=== PATIENT | male | born 1980 | race Caucasian/White ===

== ENCOUNTER 2017-09-14 21:18 | Emergency (ER) | payer BC, OTHER ==
[2017-09-14 21:33] VITALS: BP 127/84; PULSE 78; TEMP 97.4; BMI 24.4
--- NOTE | 2017-09-14 21:34 | PDOC ---
History of Present Illness - General History Source: Patient Exam Limitations: No Limitations - History of Present Illness Initial Comments: 09/14/17 21:40 The patient is a 36 year old male with a significant PMH of asthma who presents to the emergency department with chest discomfort beginning approximately 5 hours ago. The patient describes his chest discomfort as a pressure like sensation which is 5/10 in severity and aggravated by cough to a 7/10. He also notes associated left arm numbness. The patient denies any prior history of these symptoms. He reports using his Breo and ProAir to minimal relief. As per EMS, the patient was given 3 baby aspirin and 0.4 mg sublingual Nitro en route. The patient denies shortness of breath, headache and dizziness. Denies fever, chills, nausea, vomit, diarrhea and constipation. Denies dysuria, frequency, urgency and hematuria. Allergies: NKA Past surgical history: None reported. Social history: No reported cigarette, alcohol, or drug use. PCP: None reported. <Jesse Jewell - Last Filed: 09/14/17 22:01> - General History Source: Patient <ClaudetteMarkel - Last Filed: 09/14/17 23:09> - General Chief Complaint: Chest Pain Stated Complaint: CHEST PAIN Time Seen by Provider: 09/14/17 21:27 Past History <Jesse Jewell - Last Filed: 09/14/17 22:01> - Suicide/Smoking/Psychosocial Hx Smoking History: Never smoked Have you smoked in the past 12 months: No Information on smoking cessation initiated: No Hx Alcohol Use: No Drug/Substance Use Hx: No <Markel Wilkins - Last Filed: 09/14/17 23:09> - Past Medical History Allergies/Adverse Reactions: Allergies Allergy/AdvReac Type Severity Reaction Status Date / Time No Known Allergies Allergy Verified 09/14/17 21:32 Review of Systems - Review of Systems Able to Perform ROS?: Yes Comments:: 09/14/17 21:40 CONSTITUTIONAL: Absent: fever, chills, diaphoresis, generalized weakness, malaise, loss of appetite HEENT: Absent: rhinorrhea, nasal congestion, throat pain, throat swelling, difficulty swallowing, mouth swelling, ear pain, eye pain, visual Changes CARDIOVASCULAR: (+) Chest discomfort. Absent: chest pain, syncope, palpitations, irregular heart rate, lightheadedness , peripheral edema RESPIRATORY: (+) Cough, Absent: shortness of breath, dyspnea with exertion, orthopnea, wheezing, stridor , hemoptysis GASTROINTESTINAL: Absent: abdominal pain, abdominal distension, nausea, vomiting, diarrhea, constipation, melena, hematochezia GENITOURINARY: Absent: dysuria, frequency, urgency, hesitancy, hematuria, flank pain, genital pain MUSCULOSKELETAL: Absent: myalgia, arthralgia, joint swelling SKIN: Absent: rash, itching, pallor HEMATOLOGIC/IMMUNOLOGIC: Absent: easy bleeding, easy bruising, lymphadenopathy, frequent infections ENDOCRINE: Absent: unexplained weight gain, unexplained weight loss, heat intolerance, cold intolerance NEUROLOGIC: Absent: headache, focal weakness or paresthesias, dizziness, unsteady gait, seizure, mental status changes, bladder or bowel incontinence PSYCHIATRIC: <Jesse Jewell - Last Filed: 09/14/17 22:01> *Physical Exam - Vital Signs Last Vital Signs Temp Pulse Resp BP Pulse Ox 97.4 F L 78 18 127/84 98 09/14/17 21:32 09/14/17 21:32 09/14/17 21:32 09/14/17 21:32 09/14/17 21:32 - Physical Exam Comments: 09/14/17 21:41 GENERAL: Well developed, well nourished. Awake and alert. No acute distress. HEENT: Normocephalic, atraumatic. PERRLA, EOMI. No conjunctival pallor. Sclera are non- icteric. Moist mucous membranes. Oropharynx is clear. NECK: Supple. Full ROM. No JVD. Carotid pulses 2+ and symmetric, without bruits. No thyromegaly. No lymphadenopathy. CARDIOVASCULAR: Regular rate and rhythm. No murmurs, rubs, or gallops. Distal pulses are 2+ and symmetric. PULMONARY: No evidence of respiratory distress. Lungs clear to auscultation bilaterally. No wheezing, rales or rhonchi. ABDOMINAL: Soft. Non-tender. Non-distended. No rebound or guarding. No organomegaly. Normoactive bowel sounds. MUSCULOSKELETAL Normal range of motion at all joints. No bony deformities or tenderness. No CVA tenderness. EXTREMITIES: No cyanosis. No clubbing. No edema. No calf tenderness. SKIN: Warm and dry. Normal capillary refill. No rashes. No jaundice. NEUROLOGICAL: Alert, awake, appropriate. Cranial nerves 2-12 intact. No deficits to light touch and temperature in face, upper extremities and lower extremities. No motor deficits in the in face, upper extremities and lower extremities. Normoreflexic in the upper and lower extremities. Normal speech. Toes are downgoing bilaterally. Gait is normal without ataxia. PSYCHIATRIC: Cooperative. Good eye contact. Appropriate mood and affect. <Jesse Jewell - Last Filed: 09/14/17 22:01> - Vital Signs Last Vital Signs Temp Pulse Resp BP Pulse Ox 97.4 F L 78 18 127/84 98 09/14/17 21:32 09/14/17 21:32 09/14/17 21:32 09/14/17 21:32 09/14/17 21:32 <Markel Wilkins - Last Filed: 09/14/17 23:09> Heart Score/ECG Review #1 09/14/17 22:01 EKG done at 21:20 Vent rate 70 bpm Normal sinus rhythm T wave abnormality, consider anterior ischemia Abnormal ECG <Jesse Jewell - Last Filed: 09/14/17 22:01> ED Treatment Course - LABORATORY CBC & Chemistry Diagram: 09/14/17 21:50 09/14/17 21:50 <Markel Wilkins - Last Filed: 09/14/17 23:09> Medical Decision Making - Medical Decision Making 09/14/17 23:09 Dr. Wilkins: The scribe's documentation has been prepared under my direction and personally reviewed by me in its entirery. I confirm that the note above accurately reflects all work, treatment, procedures, and medical decision making performed by me. <Markel Wilkins - Last Filed: 09/14/17 23:09> *DC/Admit/Observation/Transfer - Attestations Scribe Attestion: 09/14/17 21:41 Documentation prepared by Jesse Jewell, acting as medical office supervisor for Markel Wilkins DO. <Jesse Jewell - Last Filed: 09/14/17 22:01> - Discharge Dispostion Decision to Admit order: No <Markel Wilkins - Last Filed: 09/14/17 23:09> Diagnosis at time of Disposition: Chest pain Qualifiers: Chest pain type: unspecified Qualified Code(s): R07.9 - Chest pain, unspecified - Discharge Dispostion Disposition: HOME Condition at time of disposition: Improved - Referrals Referrals: Brooke Cowan MD [Staff Physician] - Juaquin Middleton MD [Staff Physician] - - Patient Instructions Printed Discharge Instructions: DI for Chest Pain Additional Instructions: Please follow up with your doctor or the doctors referred to you if symptoms persists. Return if any problems
[2017-09-14] MEDS ORDERED: NITROGLYCERIN 2% OINTMENT - 1GM PACKET TD ONE ×2 (21:35→22:04)
[2017-09-14 22:02] LABS: BASO % 0.6 % (0-2.0); EOS % 5.6 % (0-4.5); HEMOGLOBIN 13.8 GM/dL (11.7-16.9); LYMPH % 30.7 % (8-40); MCH 29.1 pg (25.7-33.7); MCHC 34.4 g/dl (32.0-35.9); MEAN CELL VOLUME 84.4 fl (80-96); MEAN PLT VOLUME 8.5 fl (7.5-11.1); MONO % 10.8 % (3.8-10.2); NEUT % 52.3 % (42.8-82.8); PLATELET COUNT 211 K/MM3 (134-434); RBC 4.74 M/mm3 (4.00-5.60); RDW 13.7 % (11.9-15.9); WHITE BLOOD COUNT 5.5 K/mm3 (4.0-10.0)
[2017-09-14 22:15] LABS: INR 0.94 (0.82-1.09); PROTHROMBIN TIME (PATIENT) 10.6 SEC (9.7-13.0)
[2017-09-14 22:25] LABS: ALBUMIN 4.4 g/dl (3.4-5.0); ANION GAP 5 (8-16); BILIRUBIN,TOTAL 0.7 mg/dL (0.2-1.0); BLOOD UREA NITROGEN 10 mg/dL (7-18); CHLORIDE 105 mmol/L (98-107); CO2 30 mmol/L (21-32); CREATININE 1.2 mg/dL (0.7-1.3); GLUCOSE,RANDOM 101 mg/dL (74-106); LIPASE 121 U/L (73-393); MAGNESIUM 2.4 mg/dL (1.8-2.4); POTASSIUM 3.7 mmol/L (3.5-5.1); SGOT/AST 30 U/L (15-37); SGPT/ALT 47 U/L (12-78); SODIUM 140 mmol/L (136-145); TOT PROT 7.4 g/dl (6.4-8.2)
[2017-09-14 22:28] LABS: ALK PHOS 51 U/L (45-117)
--- NOTE | 2017-09-15 13:58 | EKG ---
Test Reason : Blood Pressure : / mmHG Vent. Rate : 070 BPM Atrial Rate : 070 BPM P-R Int : 134 ms QRS Dur : 098 ms QT Int : 394 ms P-R-T Axes : 039 041 039 degrees QTc Int : 425 ms POOR DATA QUALITY, INTERPRETATION MAY BE ADVERSELY AFFECTED NORMAL SINUS RHYTHM T WAVE ABNORMALITY, CONSIDER ANTERIOR ISCHEMIA ABNORMAL ECG NO PREVIOUS ECGS AVAILABLE Confirmed by MALISSA WILCOX, ADONIS ([id number]) on 09/15/2017 1:58:14 PM Referred By: Confirmed By:ADONIS LEONARDO MD
== END 2017-09-14 23:22 | disposition home or self-care (01) ==
LOC: JER 21:18
DX: R07.89 Other chest pain (principal)
CPT/HCPCS: 36415; 71045-TC-FY; 80053; 82550; 83690; 83735; 84484; 85025; 85610; 93005; 93010; 99281-25; 99284-25

== ENCOUNTER 2018-02-13 21:45 | Emergency (ER) | payer BC, OTHER ==
[2018-02-13 22:15] VITALS: BMI 29.2
[2018-02-13] MEDS ORDERED: ASPIRIN 81 MG CHEWABLE TABLETS PO ONE (22:38)
[2018-02-13] MEDS ORDERED: ASPIRIN 325 MG TABLET ONE (22:39)
[2018-02-13 22:56] LABS: BASO % 0.6 % (0-2.0); EOS % 6.8 % (0-4.5); HEMATOCRIT 41.3 % (35.4-49); HEMOGLOBIN 13.9 GM/dL (11.7-16.9); LYMPH % 35.8 % (8-40); MCH 28.5 pg (25.7-33.7); MCHC 33.7 g/dl (32.0-35.9); MEAN CELL VOLUME 84.6 fl (80-96); MEAN PLT VOLUME 8.1 fl (7.5-11.1); MONO % 9.8 % (3.8-10.2); PLATELET COUNT 220 K/MM3 (134-434); RBC 4.89 M/mm3 (4.00-5.60); RDW 13.5 % (11.9-15.9); WHITE BLOOD COUNT 5.7 K/mm3 (4.0-10.0)
--- NOTE | 2018-02-13 23:04 | PDOC ---
History of Present Illness - General Chief Complaint: Chest Pain Stated Complaint: CHEST PAIN Time Seen by Provider: 02/13/18 22:16 History Source: Patient Exam Limitations: No Limitations - History of Present Illness Initial Comments: 02/13/18 22:41 Pt is a 37yo m with PMH of asthma and GERD presenting to ED with complaints of chest tightness that started 1-1.5 hours ago while patient was driving back home. The pain feels like a pressure in the middle of the chest and radiates to the left side of the chest. Pain has been constant, not alleviated by anything. Pt says deep breaths makes it worse. Associated with "a funny feeling" the patient described as weakness down in left arm. He never had a feeling like this in the past. Pt states he felt "funny" in his chest last night, took 2 baby aspirins and went to bed, then this current episode happened. He admitted to SOB when the chest pressure started but denies it now. The weakness in his L arm has also subsided. He went to [place] last weekend and has also traveled to [place] and [place] within the past month. Pt states that while watching the game, he drank 1 beer and 1 scotch. He denies headache, neck pain, new back pain , changes in vision, n/v/d, abominal pain, diaphoresis, weakness, numbness/ tingling, loss of consciuosness, lightheadedness, fevers, recent illnesses. PCP: At [facility] PMH: asthma, GERD PSH: eye correctional surgery Meds: albuterol, brio Allergies: nkda Social: denies tobacco use, social alcohol use. 02/13/18 23:06 Past History - Past Medical History Allergies/Adverse Reactions: Allergies Allergy/AdvReac Type Severity Reaction Status Date / Time No Known Allergies Allergy Verified 02/13/18 22:14 Home Medications: Ambulatory Orders Albuterol Sulfate [Proair Hfa] 8.5 gm IH DAILY 09/18/17 Fluticasone/Vilanterol [Breo Ellipta 100-25 Mcg INH] 1 each IH DAILY 09/18/17 Pantoprazole Sodium [Protonix -] 20 mg PO DAILY 09/18/17 Asthma: Yes COPD: No GI Disorders: Yes (GERD) - Suicide/Smoking/Psychosocial Hx Smoking History: Never smoked Have you smoked in the past 12 months: No Information on smoking cessation initiated: No Hx Alcohol Use: No Drug/Substance Use Hx: No Substance Use Type: None Review of Systems - Review of Systems Able to Perform ROS?: Yes Is the patient limited Georgian proficient: No Constitutional: No: Chills, Fever HEENTM: No: Recent change in vision, Nose Congestion Respiratory: Yes: Shortness of Breath. No: Cough, Hemoptysis Cardiac (ROS): Yes: Chest Pain. No: Lightheadedness, Palpitations, Syncope ABD/GI: No: Constipated, Diarrhea, Nausea, Vomiting, Abdominal cramping : No: Burning, Frequency, Flank Pain Musculoskeletal: No: Back Pain, Joint Pain, Muscle Pain, Muscle Weakness, Neck Pain Neurological: No: Headache, Numbness, Paresthesia, Tingling, Weakness *Physical Exam - Vital Signs Last Vital Signs Temp Pulse Resp BP Pulse Ox 98.3 F 80 18 147/93 100 02/13/18 22:11 02/13/18 22:11 02/13/18 22:11 02/13/18 22:11 02/13/18 22:11 - Physical Exam Comments: 02/13/18 23:07 pt resting in bed comfortably General Appearance: Yes: Nourished, Appropriately Dressed. No: Apparent Distress HEENT: positive: EOMI, GAURAV, Pharynx Normal Neck: positive: Trachea midline, Supple. negative: Carotid bruit, Lymphadenopathy (R), Lymphadenopathy (L) Respiratory/Chest: positive: Lungs Clear, Normal Breath Sounds. negative: Respiratory Distress, Accessory Muscle Use, Crackles, Rhonchi, Wheezing Cardiovascular: positive: Regular Rhythm, Regular Rate, S1, S2. negative: Edema , JVD, Murmur Vascular Pulses: Carotid (R): 2+, Carotid (L): 2+, Dorsalis-Pedis (R): 2+, Doralis-Pedis (L): 2+ Gastrointestinal/Abdominal: positive: Normal Bowel Sounds, Soft. negative: Guarding, Rebound, Tenderness Musculoskeletal: positive: Other (tender to palpation in L upper chest). negative: CVA Tenderness (R), CVA Tenderness (L), Muscle Spasm Extremity: positive: Normal Capillary Refill. negative: Pedal Edema, Swelling, Calf Tenderness Integumentary: positive: Normal Color, Dry, Warm. negative: Cold, Clammy, Rash , Swelling Neurologic: positive: securities attorney II-XII NML intact, Fully Oriented, Alert, Normal Mood/ Affect, Normal Response, Motor Strength 5/5 Heart Score/ECG Review - History History: Highly suspicious - Electrocardiogram EKG: Normal - Age Age: </= 45 - Risk Factors Risk Factors Heart Score: Yes Positive family hx of cardiac disease Based on the list above the patient has:: No risk factors known - Troponin Troponin: </= normal limit - Score Heart Score - Total: 2 ED Treatment Course - LABORATORY CBC & Chemistry Diagram: 02/13/18 22:45 02/13/18 22:45 - RADIOLOGY Radiology Studies Ordered: Category Date Time Status CHEST PA & LAT [RAD] Stat Radiology 02/13/18 22:34 Ordered Medical Decision Making - Medical Decision Making 02/13/18 23:04 37yo m with pmh of asthma, gerd presenting with 1-1.5 hr chest pressure. vitals: wnl PE: tender to palpation in L upper chest DDx: acs, pe, dissection, pna, ptx, gerd, msk, asthma exacerbation low suspicion for pna, ptx and dissection due to normal breath sounds, lack of fever, cough. Will order cbc, cmp, troponin and d-dimer (history of travel, acute onset chest pain worsened with breathing) ekg: nsr and compared to EKG done in September no more t wave inversion in leads V2 and V3. given ASA 02/13/18 23:42 labs: wnl D-dimer: negative EKG: nsr CXR: no acute pathology. compared to cxr in September, no changes noted HEART score 3 Pt still feeling substernal discomfort. Will give pt Maalox, Zantac and Tylenol. Will reevaluate. Lower suspicion for ACS with normal ekg and normal labs and negatve d-dimer. Pt is hemodynamically stable. Will check second troponin at 145am. Pt signed out to Dr. Salinas if negative pt can be dc home. has follow up and hemodynamically stable *DC/Admit/Observation/Transfer Diagnosis at time of Disposition: Chest pain Qualifiers: Chest pain type: unspecified Qualified Code(s): R07.9 - Chest pain, unspecified - Discharge Dispostion Disposition: HOME Condition at time of disposition: Good Decision to Admit order: No - Referrals - Patient Instructions Printed Discharge Instructions: DI for Chest Pain Additional Instructions: You were seen here today for evaluation of chest pain. All of your tests were normal. Remember to make an appointment with your primary care doctor for further evaluation and treatment for chest pain and GERD. I recommend making an appointment within the next week. Please come back to the emergency room if: chest pain gets worse, you have difficulty breathing, you have palpitations, you feel lightheaded or lose consciousness, or if any new concerning symptom develops. Thank you - Post Discharge Activity
[2018-02-13 23:23] LABS: ALBUMIN 4.2 g/dl (3.4-5.0); ALK PHOS 44 U/L (45-117); ANION GAP 6 MMOL/L (8-16); BILIRUBIN,TOTAL 0.3 mg/dL (0.2-1); BLOOD UREA NITROGEN 14 mg/dL (7-18); CALCIUM 9.6 mg/dL (8.5-10.1); CHLORIDE 104 mmol/L (98-107); CO2 31 mmol/L (21-32); CREATININE 1.2 mg/dL (0.55-1.3); GLUCOSE,RANDOM 105 mg/dL (74-106); POTASSIUM 3.9 mmol/L (3.5-5.1); SGOT/AST 24 U/L (15-37); SGPT/ALT 38 U/L (13-61); SODIUM 140 mmol/L (136-145); TOT PROT 7.5 g/dl (6.4-8.2)
[2018-02-13] MEDS ORDERED: RANITIDINE HCL 150 MG TABLET (FP) PO ONE (23:30)
[2018-02-13] MEDS ORDERED: MAG HYDROX/AL HYDROX/SIMETH 30 ML UNIT-DOSE CUP PO ONE (23:30)
[2018-02-13] MEDS ORDERED: ACETAMINOPHEN 500 MG TABLET (FP) PO ONE (23:32)
[2018-02-14] MEDS ORDERED: RANITIDINE HCL 150 MG TABLET (FP) ONE (00:11)
[2018-02-14] MEDS ORDERED: ACETAMINOPHEN 325 MG TABLET (FP) ONE (00:11)
[2018-02-14] MEDS ORDERED: MAG HYDROX/AL HYDROX/SIMETH 30 ML UNIT-DOSE CUP ONE (00:12)
--- NOTE | 2018-02-14 01:45 | PDOC ---
Attending Attestation - HPI HPI: 02/14/18 01:52 The patient is a 37 year old male, with a significant past medical history of asthma, GERD, who presents to the emergency department with chest pressure that started 1-1.5 hours prior to ED arrival while patient was driving home. The patient reports his pain as pressure in the middle of the chest with radiation to the left side of the chest. He reports the pain has been constant, not alleviated by anything. Pt reports pain exacerbation with deep breaths. He denies ever having a feeling like this in the past. Pt states he felt "funny" last night, took 2 baby aspirins and went to bed, however, woke up with the chest presure. He reportedly went to [place] last weekend and has also traveled to [place] and [place] within the past month. The patient reports to drinking 1 beer and 1 scotch while watching the game. He denies headache, neck pain, new back pain, changes in vision, n/v/d, abdominal pain, diaphoresis, weakness, numbness/tingling, loss of consciousness , lightheadedness, fevers, recent illnesses. PCP: Unknown name at [facility] PSH: correctional eye surgery, colonoscopy, endoscopy x2 (ulcer, repeat, ulcer resolved) Allergies: NKDA Social: denies tobacco use, social alcohol use. - Physicial Exam PE: 02/14/18 01:53 GENERAL: Well-appearing, well-nourished. No apparent distress. HEENT: Normocephalic, atraumatic. PERRL, EOM intact. CARDIOVASCULAR: Normal S1, S2. Regular rate and rhythm. PULMONARY: Clear to auscultation bilaterally. ABDOMEN: Soft, non-distended, non-tender. EXTREMITIES: Normal ROM in all four extremities. No gross deformities. SKIN: Warm, dry. No rash NEUROLOGICAL: No focal neurological deficits. - Medical Decision Making 02/14/18 01:53 Documentation prepared by Beth Evangelista, acting as emergency medicine medical director for Marisol Urena MD <Beth Evangelista - Last Filed: 02/14/18 01:52> - Resident Resident Name: Arline Loja - ED Attending Attestation I have performed the following: I have examined & evaluated the patient, The case was reviewed & discussed with the resident, I agree w/resident's findings & plan, Exceptions are as noted - Medical Decision Making pt has strong history of GERD and was drinking etoh today. plan if second trop is negative,he can be discharged -pt states he had stopped using his protonix but he will put himself back on it. 02/14/18 02:29 <Marisol Urena - Last Filed: 02/14/18 02:31>
--- NOTE | 2018-02-14 01:52 | PDOC ---
History of Present Illness - General Chief Complaint: Chest Pain Stated Complaint: CHEST PAIN Time Seen by Provider: 02/13/18 22:16 Past History - Past Medical History Allergies/Adverse Reactions: Allergies Allergy/AdvReac Type Severity Reaction Status Date / Time No Known Allergies Allergy Verified 02/13/18 22:14 Home Medications: Ambulatory Orders Albuterol Sulfate [Proair Hfa] 8.5 gm IH DAILY 09/18/17 Fluticasone/Vilanterol [Breo Ellipta 100-25 Mcg INH] 1 each IH DAILY 09/18/17 Pantoprazole Sodium [Protonix -] 20 mg PO DAILY 09/18/17 Asthma: Yes COPD: No CHF: No GI Disorders: Yes (GERD) - Suicide/Smoking/Psychosocial Hx Smoking History: Never smoked Have you smoked in the past 12 months: No Information on smoking cessation initiated: No Hx Alcohol Use: No Drug/Substance Use Hx: No Substance Use Type: None Review of Systems - Review of Systems Is the patient limited Austrian proficient: No *Physical Exam - Vital Signs Last Vital Signs Temp Pulse Resp BP Pulse Ox 98.3 F 73 16 129/89 100 02/13/18 22:11 02/13/18 23:00 02/13/18 23:00 02/13/18 23:00 02/13/18 23:00 ED Treatment Course - LABORATORY CBC & Chemistry Diagram: 02/13/18 22:45 02/13/18 22:45 - ADDITIONAL ORDERS Additional order review: Laboratory Results 02/13/18 02/13/18 22:45 22:45 D-Dimer 205 Sodium 140 Potassium 3.9 Chloride 104 Carbon Dioxide 31 Anion Gap 6 L BUN 14 Creatinine 1.2 Creat Clearance w eGFR > 60 Random Glucose 105 Calcium 9.6 Total Bilirubin 0.3 AST 24 ALT 38 Alkaline Phosphatase 44 L Troponin I < 0.02 Total Protein 7.5 Albumin 4.2 02/13/18 22:45 RBC 4.89 MCV 84.6 MCHC 33.7 RDW 13.5 MPV 8.1 Neutrophils % 47.0 Lymphocytes % 35.8 Monocytes % 9.8 Eosinophils % 6.8 H Basophils % 0.6 - Medications Given in the ED: ED Medications Discontinued Medications Generic Name Dose Route Start Last Admin Trade Name Freq PRN Reason Stop Dose Admin Acetaminophen 1,000 mg 02/13/18 23:32 02/14/18 00:10 Tylenol - PO 02/13/18 23:33 1,000 mg ONCE ONE Administration Al Hydroxide/Mg Hydroxide 30 ml 02/13/18 23:30 02/14/18 00:10 Mylanta Oral Suspension - PO 02/13/18 23:31 30 ml ONCE ONE Administration Aspirin 324 mg 02/13/18 22:38 02/13/18 23:00 Asa - PO 02/13/18 22:39 324 mg ONCE ONE Administration Ranitidine HCl 150 mg 02/13/18 23:30 02/14/18 00:10 Zantac - PO 02/13/18 23:31 150 mg ONCE ONE Administration Medical Decision Making - Medical Decision Making The patient is a 37M w/ a history of EtOH abuse and GERD who presents for evaluation of chest pain. Received patient as a sign out, discussed history, presentation, and care to this point. Dispo pending repeat Trop I at 0140 Repeat TropI 02/14/18 01:36 Repeat Trop I neg Plan for D/C w/ PCP f/u Discharge instructions and return precautions given Patient in agreement and verbalized understanding of plan above Dispo: Home *DC/Admit/Observation/Transfer Diagnosis at time of Disposition: Chest pain Qualifiers: Chest pain type: unspecified Qualified Code(s): R07.9 - Chest pain, unspecified - Discharge Dispostion Disposition: HOME Condition at time of disposition: Stable Decision to Admit order: No - Referrals - Patient Instructions Printed Discharge Instructions: DI for Chest Pain Additional Instructions: You were seen here today for evaluation of chest pain. All of your tests were normal. Remember to make an appointment with your primary care doctor for further evaluation and treatment for chest pain and GERD. I recommend making an appointment within the next week. Please come back to the emergency room if: chest pain gets worse, you have difficulty breathing, you have palpitations, you feel lightheaded or lose consciousness, or if any new concerning symptom develops. Thank you - Post Discharge Activity
[2018-02-14 02:57] VITALS: BP 111/75; PULSE 61; TEMP 97.7
--- NOTE | 2018-02-14 15:36 | EKG ---
Test Reason : Blood Pressure : / mmHG Vent. Rate : 075 BPM Atrial Rate : 075 BPM P-R Int : 160 ms QRS Dur : 100 ms QT Int : 382 ms P-R-T Axes : 020 027 024 degrees QTc Int : 426 ms NORMAL SINUS RHYTHM NORMAL ECG WHEN COMPARED WITH ECG OF 14-SEP-2017 21:20, T WAVE INVERSION NO LONGER EVIDENT IN ANTERIOR LEADS Confirmed by JOSEPH KEY MD ([id number]) on 02/14/2018 3:35:47 PM Referred By: Confirmed By:JOSEPH KEY MD
== END 2018-02-14 03:50 | disposition home or self-care (01) ==
LOC: JER 21:45
DX: R07.9 Chest pain, unspecified (principal); J45.909 Unspecified asthma, uncomplicated; K21.9 Gastro-esophageal reflux disease without esophagitis
CPT/HCPCS: 36415; 71046-TC-FY; 80053; 84484; 85025; 85379; 93005; 93010; 99283-25